=== PATIENT | female | born 1985 | race Caucasian/White ===

== ENCOUNTER 2019-08-21 14:48 | Emergency (ER) | payer OTHER ==
[~2019-08-21] VITALS: Ht 165.1 cm; Wt 70.8 kg
[2019-08-21 14:58] VITALS: Ht 165.1 cm; Wt 70.8 kg
[2019-08-21 15:58] VITALS: BP 111/74
== END 2019-08-21 16:27 | disposition home or self-care (01) ==
LOC: ED 14:48
DX: S20.229A Contusion of unspecified back wall of thorax, initial encounter (principal); W50.0XXA Accidental hit or strike by another person, initial encounter; Y93.89 Activity, other specified; Y92.89 Other specified places as the place of occurrence of the external cause; Y99.8 Other external cause status
CPT/HCPCS: 72072; J1885

== ENCOUNTER 2020-08-26 05:49 | Emergency (ER) | payer OTHER ==
[~2020-08-26] VITALS: Ht 165.1 cm; Wt 71.7 kg
[2020-08-26 06:07] VITALS: Ht 165.1 cm; Wt 71.7 kg
[2020-08-26 06:51] VITALS: BP 121/62
== END 2020-08-26 06:51 | disposition home or self-care (01) ==
LOC: ED 05:49
DX: L30.8 Other specified dermatitis (principal)

== ENCOUNTER 2020-09-04 07:04 | Emergency (ER) | payer OTHER ==
[~2020-09-04] VITALS: Ht 165.1 cm; Wt 67.1 kg
[2020-09-04 07:17] VITALS: BP 93/69; Ht 165.1 cm; Wt 67.1 kg
== END 2020-09-04 08:10 | disposition home or self-care (01) ==
LOC: ED 07:04
DX: H10.32 Unspecified acute conjunctivitis, left eye (principal); Z88.2 Allergy status to sulfonamides; Z88.1 Allergy status to other antibiotic agents